=== PATIENT | male | born 1965 | race Hispanic/Latino ===

== ENCOUNTER → 2023-10-08 | Outpatient (CLI) | payer OTHER | END | disposition home or self-care (01) | LOC: RAH 13:28 | PROVIDERS: ATTEND Chiropractor | DX: I34.0 Nonrheumatic mitral (valve) insufficiency (principal); I51.7 Cardiomegaly; E11.9 Type 2 diabetes mellitus without complications; Z95.818 Presence of other cardiac implants and grafts; Z87.891 Personal history of nicotine dependence; J45.909 Unspecified asthma, uncomplicated | CPT/HCPCS: 93306 ==